=== PATIENT | male | born 1955 | race Caucasian/White ===

== ENCOUNTER 2024-01-03 06:01 | Day surgery (SDC) | payer OTHER ==
[2024-01-03] MEDS: Ringers Lactate 1,000 ML IV ONE (06:30)
[2024-01-03] MEDS ORDERED: ONDANSETRON 4 MG/2 ML VIAL ONE (06:50)
[2024-01-03] MEDS ORDERED: MIDAZOLAM HCL 2 MG/2 ML INJ ONE (06:50)
[2024-01-03] MEDS ORDERED: propofoL 200 MG/20 ML VIAL IV ONE (06:50)
[2024-01-03] MEDS ORDERED: dexAMETHasone 10 MG/ML VIAL ONE (06:50)
[2024-01-03] MEDS ORDERED: LIDOCAINE 2% MPF 5 ML VIAL ONE (06:50)
[2024-01-03] MEDS ORDERED: KETOROLAC 30 MG/ML INJ ONE (06:50)
[2024-01-03] MEDS ORDERED: FENTANYL CITR 100 MCG/2 ML ONE (06:50)
[2024-01-03] MEDS: BUPIVACAINE 0.5% PF 10 ML VIAL ONE (07:30)
--- NOTE | 2024-01-03 08:19 | OP ---
Date of Procedure: 01/03/2024 Surgeon: Chetan Gautam MD Preoperative Diagnosis: Left fourth trigger digit. Postoperative Diagnosis: Left fourth trigger digit. Procedure: Left fourth trigger digit release. Estimated Blood Loss: Less than 3 cc. Complications: There were no complications. Specimens: No pathology specimens sent. Indication For Operation: The patient is a 68-year-old male, who unfortunately is suffering with stella n and triggering related to his left fourth digit. He has developed some stiffness of the PIP. He c aparna to see me in my office and risks, benefits, and alternatives of different methods of treatment we re discussed with the patient. He states he understands things as presented and opts for trigger dig it release and agrees to proceed. Description Of Procedure: The patient was taken to the operating room and placed in supine position. General anesthesia was obtained by staff. Following this, a well-padded tourniquet was placed on s uperior left arm. Left upper extremity was then prepped and draped in the usual sterile fashion for the procedure. Following this, the arm was then elevated, but not exsanguinated. Tourniquet was ba sed. A standard horizontal incision was made carefully just through skin at the appropriate anatomic landmark overlying the A1 josef. Further dissection was done bluntly until the tendon and A1 pulle y were easily visualized. After this, a small marietta was made in the A1 josef, which demonstrates kimmie eration of some synovial fluid and establishes the inferior margin. This was then expanded in a prox imal to distal direction until no constricting bands. It was again checked in a distal to proximal d irection until no constricting bands. Following this, the wound was closed and dressed. The patient was awakened and taken to recovery room in good condition. No complications. SE/MODL Voice ID: [id number] Report ID: [id number]
[2024-01-03 09:25] VITALS: BP 120/79; TEMP 97; O2SAT 98
[2024-01-03] MEDS ORDERED: EPHEDRINE SULF 50 MG/ML VIAL ONE (13:30)
--- NOTE | 2024-01-03 16:38 | EKG ---
Test Date: 2024-01-02 Test Time: 14:35:37 Key Operator: JACINTO MEASUREMENT RESULTS: Intervals: Rate: 63 VT: 154 QRSD: 150 QT: 450 QTc: 460 [place]: P: 50 VT: 154 QRS: -77 T: 110 INTERPRETIVE STATEMENTS: Electronic ventricular pacemaker No previous ECG available for comparison Electronically Signed On 01-03-24 16:37:30 RESEARCH RN SPEC by Jose Luis Tan
== END 2024-01-03 09:30 | disposition home or self-care (01) ==
LOC: OR 06:01
PROVIDERS: ATTEND Orthopaedic Surgery
PROC: 0LN80ZZ Release Left Hand Tendon, Open Approach (ICD-10-PCS; principal; 2024-01-03 07:00)
DX: M65.342 Trigger finger, left ring finger (principal)
CPT/HCPCS: 93005; 26055; J2704; J2001; J2250; J3010; J1100; J2405; J7120

== ENCOUNTER → 2025-02-05 | Day surgery (SDC) | payer OTHER ==
[2025-02-01 09:31] LABS: PT Prothrombin Time 22.5 SECONDS (10-13.0); PTT, Activated Partial Thromb 38.2 SECONDS (27.2-37.4); Protime INR 2.04
--- NOTE | 2025-02-04 12:10 | EKG ---
Test Date: 2025-02-01 Test Time: 08:29:54 [employer] Worker: CYNDI MEASUREMENT RESULTS: Intervals: Rate: 60 MD: 176 QRSD: 154 QT: 432 QTc: 432 [place]: P: 21 MD: 176 QRS: -81 T: 78 INTERPRETIVE STATEMENTS: AV sequential or dual chamber electronic pacemaker Compared to ECG 01/02/2024 14:35:37 Ventricular-paced complex(es) or rhythm no longer present Electronically Signed On 02-04-25 12:03:09 CDT by Aníbal Ko
[~2025-02-05] MED LIST: EPHEDRINE SULF 50 MG/ML VIAL ONE; FENTANYL CITR 100 MCG/2 ML ONE; LIDOCAINE 2% MPF 5 ML VIAL ONE; MIDAZOLAM HCL 2 MG/2 ML INJ ONE; NA CHLORIDE 0.9% 0 ML ONE; ONDANSETRON 4 MG/2 ML VIAL ONE; Ringers Lactate 1,000 ML IV ONE; dexAMETHasone 10 MG/ML VIAL ONE; propofoL 200 MG/20 ML VIAL IV ONE
[2025-02-05 08:48] LABS: PT Prothrombin Time 15.1 SECONDS (10-13.0); PTT, Activated Partial Thromb 30.6 SECONDS (27.2-37.4); Protime INR 1.34
--- NOTE | 2025-02-05 11:08 | OP ---
Date of Procedure: 02/05/2025 Surgeon: Chetan Gautam MD Preoperative Diagnosis: Right fourth trigger digit. Postoperative Diagnosis: Right fourth trigger digit. Procedure: Right fourth trigger digit release. Estimated Blood Loss: Less than 3 cc. Complications: There were no complications. Specimens: No pathology specimen sent. Indications For Operation: Mr. Martinez is a 69-year-old gentleman who unfortunately suffers from tr iggering and pain of his right fourth digit. He has had a previous left fourth digit trigger, which was released by me and did well, and he came to my office with complaints of the right side. Risks, benefits, and alternatives of different methods of treating this including the possibility of injecti on or other measures have been discussed with him. He opts for surgical intervention, as this worked well in the past and is aware of the risks and agrees to proceed. Description Of Procedure: The patient was taken to the operating room, placed in supine position. G eneral anesthesia was obtained by staff. Following this, well-padded tourniquet was placed on the emery perior right arm. Right upper extremity was then prepped and draped in usual sterile fashion for the procedure. Following this, the arm was then elevated, but not exsanguinated. Tourniquet was raised . A standard incision was made at the region of the A1 josef, carefully through skin only. Meticul ous hemostasis being maintained using bipolar electrocautery. Following this, blunt dissection was u sed exclusively to expose the tendon and tendon sheath, and A1 josef. A small marietta was made in the A1 josef with liberation of synovial fluid. This was then followed in a proximal to distal directio n until there were no constricting bands. It was then followed in a distal to proximal direction unt il there were no constricting bands. At no time were any sharp instruments placed outside the direct visual operative field and it was double checked using hemostat to ensure there were no obstructions . The finger was brought through full range of motion with no abnormal tendon movement. The wound w as then gently irrigated and skin was closed using nylon sutures followed by a well-padded sterile dr essing. The patient was then awakened and taken to recovery room in good condition. No complication s. SE/MODL Voice ID: [id number] Report ID: [id number]
[2025-02-05 12:42] VITALS: BP 127/89; TEMP 97.3; O2SAT 97
== END ==
LOC: OR 07:58
PROVIDERS: ATTEND Orthopaedic Surgery
PROC: 0LN70ZZ Release Right Hand Tendon, Open Approach (ICD-10-PCS; principal; 2025-02-05 09:45)
DX: M65.341 Trigger finger, right ring finger (principal)
CPT/HCPCS: 93005; 36415 ×2; 85610 ×2; 85730 ×2; 26055; J2704; J2003; J2250; J3010; J1100; J2405; J7120; J7030